=== PATIENT | male | born 1935 | race Caucasian/White ===

== ENCOUNTER 2017-09-11 19:04 | Emergency (ER) | payer MEDICARE, OTHER ==
--- NOTE | 2017-09-11 21:17 | XR ---
EXAMINATION TYPE: XR chest 2V DATE OF EXAM: 09/11/2017 COMPARISON: Today HISTORY: Chest pain TECHNIQUE: Frontal and lateral views of the chest are obtained. FINDINGS: Heart is enlarged. There is coarsening of pulmonary interstitial markings. There is no ple ural effusion. Thoracic aorta is atheromatous. Lungs are clear of consolidation. IMPRESSION: Cardiomegaly. Pulmonary fibrotic changes. No gross heart failure. No significant change compared to exam earlier today.
--- NOTE | 2017-09-11 21:24 | XR ---
EXAMINATION TYPE: XR hand complete LT DATE OF EXAM: 09/11/2017 COMPARISON: NONE HISTORY: Pain, little finger pain TECHNIQUE: 3 views FINDINGS: I see no fracture nor dislocation. There is moderate spurring at the first carpometacarpal joint. There is narrowing and spurring at the DIP joints of all the digits. This appears worse at the DIP joint of the middle finger. There is spurring at the radial styloid process. There is accessory ossicle or old injury at the ulnar styloid process. The metacarpals are intact. There is nondisplaced fracture of the little finger at the base of the proximal phalanx. IMPRESSION: Osteoarthritic changes. There is nondisplaced transverse fracture of the base of the proximal phalanx of the little finger.
--- NOTE | 2017-09-11 21:36 | ED ---
General Adult HPI - General Chief complaint: Fall Stated complaint: fall Time Seen by Provider: 09/11/17 21:05 Source: patient, family, RN notes reviewed Mode of arrival: wheelchair Limitations: no limitations - History of Present Illness Initial comments: Patient is a pleasant 82-year-old male presenting to the emergency department following a fall. Incident occurred just prior to arrival. Patient fell one step off a step ladder. Patient did strike his head. No loss of consciousness. Patient is only on daily aspirin, otherwise no anticoagulation. No neck pain. No headache. Patient does have some mild/moderate discomfort of his left small finger and hand region. Patient also has mild discomfort left ribs from the fall. No difficulty in breathing. Patient did have a chest x-ray done which they question possible fluid. - Related Data Home Medications Medication Instructions Recorded Confirmed Acetaminophen [Tylenol Extra 1,000 mg PO Q6H PRN 09/11/17 09/11/17 Strength] Aspirin [Adult Low Dose Aspirin EC] 81 mg PO DAILY 09/11/17 09/11/17 Cholecalciferol (Vitamin D3) 2,000 unit PO DAILY 09/11/17 09/11/17 [Vitamin D3] Enalapril [Vasotec] 5 mg PO DAILY 09/11/17 09/11/17 Fish Oil/Dha/Epa [Fish Oil 1,200 1 cap PO DAILY 09/11/17 09/11/17 mg Fish Oil] Furosemide [Lasix] 40 mg PO DAILY 09/11/17 09/11/17 Metoprolol Succinate (ER) [Toprol 50 mg PO DAILY 09/11/17 09/11/17 Xl] Simvastatin [Zocor] 40 mg PO DAILY 09/11/17 09/11/17 Allergies Allergy/AdvReac Type Severity Reaction Status Date / Time No Known Allergies Allergy Verified 09/11/17 20:32 Review of Systems ROS Statement: Those systems with pertinent positive or pertinent negative responses have been documented in the HPI. ROS Other: All systems not noted in ROS Statement are negative. Constitutional: Denies: fever Eyes: Denies: eye pain ENT: Denies: ear pain Respiratory: Denies: cough, dyspnea Cardiovascular: Reports: chest pain ((Pain) Endocrine: Denies: fatigue Gastrointestinal: Denies: abdominal pain Genitourinary: Denies: dysuria Musculoskeletal: Denies: back pain Skin: Denies: rash Neurological: Denies: weakness Past Medical History Past Medical History: Coronary Artery Disease (CAD), Hyperlipidemia, Hypertension History of Any Multi-Drug Resistant Organisms: None Reported Past Surgical History: Heart Catheterization With Stent, Orthopedic Surgery Additional Past Surgical History / Comment(s): margarita knees,lt hip replacement Past Psychological History: No Psychological Hx Reported Smoking Status: Former smoker Past Alcohol Use History: None Reported Past Drug Use History: None Reported General Exam Limitations: no limitations General appearance: alert, in no apparent distress Head exam: Present: other (Forehead and nasal abrasion without tenderness) Eye exam: Present: normal appearance, PERRL, EOMI. Absent: nystagmus ENT exam: Present: normal oropharynx Neck exam: Present: normal inspection, full ROM. Absent: tenderness Respiratory exam: Present: normal lung sounds bilaterally. Absent: wheezes Cardiovascular Exam: Present: regular rate, normal rhythm GI/Abdominal exam: Present: soft. Absent: distended, tenderness Extremities exam: Present: other (Tenderness and swelling left proximal small finger and region.) Back exam: Present: normal inspection. Absent: tenderness, vertebral tenderness Neurological exam: Present: alert, oriented X3, CN II-XII intact. Absent: motor sensory deficit Expanded Neurological exam: Present: protecting the airway Speech: Present: fluid speech Cranial nerves: EOM's Intact: Normal, Nystagmus: Normal Sensory exam: Upper Extremity Light Touch: Normal, Lower Extremity Light Touch: Normal Motor strength exam: RUE: 5, LUE: 5, RLE: 5, LLE: 5 Eye Response: (4) open spontaneously Motor Response: (6) obeys commands Verbal Response: (5) oriented Psychiatric exam: Present: normal affect, normal mood Skin exam: Present: normal color Course Vital Signs 09/11/17 19:40 Temperature 98.3 F Pulse Rate 77 Respiratory 20 Rate Blood Pressure 164/79 O2 Sat by Pulse 97 Oximetry Medical Decision Making - Medical Decision Making Patient was updated on results. - Radiology Data Radiology results: image reviewed (Bilateral rib x-ray shows no acute rib fracture. Chest x-ray shows fibrotic changes. No gross heart failure. No change from previous study. X-ray of the left hand shows fracture at the base of the proximal phalanx of the little finger.) Disposition Clinical Impression: Fall, Finger fracture Disposition: HOME SELF-CARE Condition: Stable Instructions: Finger Fracture (ED), Blunt Chest Trauma (ED), Fall Prevention for Older Adults (ED), Head Injury (ED) Additional Instructions: Twice daily wash abrasions with soap and water, apply antibiotic ointment, and bandage. Follow-up with orthopedics for finger fracture. Return for increased pain, difficulty breathing, change in mental status, confusion, weakness, worsening symptoms or other concerns. Hold aspirin for 3 days. Referrals: Benny Carvajal MD [STAFF PHYSICIAN] - 1-2 days Jack Marquez MD [Medical Doctor] - 1-2 days Time of Disposition: 21:53
--- NOTE | 2017-09-11 21:47 | XR ---
EXAMINATION TYPE: XR ribs bilateral DATE OF EXAM: 09/11/2017 COMPARISON: NONE HISTORY: Left rib pain TECHNIQUE: 9 views FINDINGS: There is no evidence of pneumothorax. Lungs appear clear of consolidation. I see no displac ed rib fracture. There is some mild deformity of the anterior left seventh rib suggestive of old inju ry. There is mild deformity of the posterior right seventh eighth and ninth ribs consistent with old healed fractures. IMPRESSION: No acute rib fracture seen. There is evidence for bilateral old rib fractures.
[2017-09-11 22:11] VITALS: BP 149/79; PULSE 90; RESP 18; TEMP 98
== END 2017-09-11 22:11 | disposition home or self-care (01) ==
LOC: EC 19:04
DX: S62.617A Displaced fracture of proximal phalanx of left little finger, initial encounter for closed fracture (principal); S00.81XA Abrasion of other part of head, initial encounter; S00.31XA Abrasion of nose, initial encounter; E78.5 Hyperlipidemia, unspecified; I10 Essential (primary) hypertension; Z87.891 Personal history of nicotine dependence; Z79.82 Long term (current) use of aspirin; Z79.899 Other long term (current) drug therapy; W11.XXXA Fall on and from ladder, initial encounter
CPT/HCPCS: 71046; 71110; 99283